=== PATIENT | female | born 1970 ===

== ENCOUNTER 2024-12-12 19:16 | Inpatient (IN) | payer OTHER, SELFPAY ==
[2024-12-12 19:43] VITALS: BP 136/91; PULSE 80; RESP 17; TEMP 36.5; O2SAT 96; BMI 30.5
[2024-12-12 20:45] LABS: MANUAL DIFF FLAG NO
[2024-12-12 20:47] LABS: Basophils Absolute Auto 0.1 X10*3/uL (0.0-0.2); Basophils Percent Auto 0.9 % (0-2); Eosinophils Absolute Auto 0.1 X10*3/uL (0.0-0.4); Hematocrit 39.7 % (37.0-47.0); Hemoglobin 13.4 g/dl (12.0-16.0); Imm Gran Abs Auto 0.01 X10*3/uL (0.00-0.03); Imm Gran Pct Auto 0.1 % (0.0-0.4); Lymphocytes Absolute Auto 3.6 X10*3/uL (1.2-4.9); Lymphocytes Percent Auto 51.7 % (20-40); Mean Corpuscular HGB Conc 33.8 g/dl (31.0-35.0); Mean Corpuscular Hemoglobin 30.5 pg (27.0-33.0); Mean Corpuscular Volume 90.2 fL (80.0-98.0); Mean Platelet Volume 9.5 fL (9.4-12.3); Monocytes Absolute Auto 0.5 X10*3/uL (0.1-1.2); Monocytes Percent Auto 7.6 % (2-11); Neutrophils Absolute Auto 2.6 x10*3/uL (2.0-8.3); Neutrophils Percent Auto 37.7 % (45-73); Platelet Count 330 X10*3/uL (160-400); Red Cell Distribution Width 12.7 % (11.0-16.0)
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
[2024-12-12 21:01] LABS: Alanine Aminotransferase 27 U/L (0-31); Albumin Level 4.4 g/dL (3.5-5.0); Alkaline Phosphatase 107 U/L (39-117); Anion Gap 12 (12-20); Aspartate Amino Transferase 21 U/L (5-31); Bilirubin Total 0.3 mg/dL (0.0-1.0); Blood Urea Nitrogen 12 mg/dL (9-16); Calcium 10.2 mg/dL (8.4-10.2); Carbon Dioxide 23 mmol/L (22-29); Chloride 113 mmol/L (96-108); Creatinine Clr Calc Pharmacy 81.5; Estimated Glomerular Filt Rate > 60; Ethanol < 10 mg/dL; Glucose Random 89 mg/dL (60-115); Sodium 144 mmol/L (135-145); Total Protein 7.2 g/dL (6.5-8.0)
--- NOTE | 2024-12-12 21:20 | ED_ITS ---
HPI - Psych General Chief Complaint: Psychiatric Symptoms Stated Complaint: SI Time Seen by Provider: 12/12/24 19:47 Source: patient and EMS Mode of arrival: EMS Limitations: no limitations History of Present Illness ED Provider: Nelida Marin NP HPI Narrative: Patient is a 54-year-old female who presents emergency department for evaluation via EMS. She came voluntarily endorsing suicidal ideations with a plan to shoot herself in her backyard. She admits that she has been having longstanding issues with depression since 2021 when her mother from [employer]. At that time she became the guardian of her younger siblings who were adopted states currently has a brother who is 14 currently home with her son and her sister who is 16 and in a local [facility] home. She follows with her therapist/psychiatrist through [facility] She admits to an inpatient admission in April 2024 for 3 weeks followed by 3 months of partial hospitalization program. At this time she does feel that she would benefit from an inpatient stay. Denies homicidal ideations. Denies recreational drug or alcohol usage. Denies auditory or visual hallucinations. Offers no physical complaints at this time Related Data Home Medications ?Medication ?Instructions ?Recorded ?Confirmed atogepant 60 mg tablet (Qulipta) 60 mg PO DAILY 12/12/24 12/12/24 bupropion HCl 150 mg tablet,12 hr 150 mg PO DAILY 12/12/24 12/12/24 sustained-release npfsizyzkk-[id number]-gzuxtanq 1 tab PO QID PRN migraine 12/12/24 12/12/24 50 mg-325 mg-40 mg tablet clonidine HCl 0.1 mg tablet 0.1 mg PO QID PRN Anxiety 12/12/24 12/12/24 hydrochlorothiazide 12.5 mg tablet 12.5 mg PO DAILY PRN Edema 12/12/24 12/12/24 sertraline 150 mg capsule 150 mg PO DAILY 12/12/24 12/12/24 topiramate 100 mg tablet 100 mg PO BEDTIME 12/12/24 12/12/24 ubrogepant 100 mg tablet (Ubrelvy) 100 mg BID PRN Migraine Headache 12/12/24 12/12/24 vitamin B complex 1 cap PO DAILY 12/12/24 12/12/24 zolpidem 10 mg tablet 10 mg PO BEDTIME 12/12/24 12/12/24 Allergies Allergy/AdvReac Type Severity Reaction Status Date / Time gabapentin Allergy Rash Verified 12/12/24 19:50 lisinopril Allergy Rash Verified 12/12/24 19:50 Penicillins Allergy Rash Verified 12/12/24 19:50 Review of Systems 2 Review of Systems: Yes all other systems are reviewed and are negative [facility] Past Medical History Attestation statement: The following information was validated with the patient. Source: old records reviewed Social History Social History Household Members: Family Household Members Other:: daughter, son, little brother, and Housing: House Do you presently have visiting nurse or other home services: No Patient Tobacco Use Status: Never used Tobacco Smoked in Last 30 Days: No e-Cigarette/Vaping Use: Never Used Patient Interested in Nicotine Replacement: No Patient Given Instructions on How to Stop Smoking: No Second Hand Smoke Exposure: No Currently Displaying Signs/Symptoms of Drug Intoxication Withdrawal: No Have you been hit, kicked, punched, or otherwise hurt by someone within the past year? If so, by whom?: No Do you feel safe in your current relationship?: Yes Is there a partner from a previous relationship who is making you feel unsafe now?: No Are you made to feel afraid or neglected: No Spiritual Healthcare Practices: none Sabianism Healthcare Practices: reading bible, is Jew Cultural Healthcare Practices: none Advance Directives: No Advance Directives Information Provided: No Do you have thoughts of harming others: None Do you have a plan to hurt others: No Plan Recently lost weight without trying: No How much weight loss: Not applicable Eating poorly because of decreased appetite: No Nutrition screen score: 0 Nutrition Risks: No Nutritional Risk Patient : No : No Poor oral hygiene: No service: No Sexual orientation: Straight/Heterosexual Physical Exam 2 Vital Signs: Vital Signs: Last Vital Signs Temp 98.1 F 12/16/24 19:58 Pulse 87 12/16/24 19:58 Resp 16 12/16/24 19:58 BP 132/94 H 12/16/24 19:58 Pulse Ox 98 12/16/24 19:58 O2 Del Method Room Air 12/16/24 19:58 BMI result Body Mass Index 30.5 Appearance: Alert.?Oriented to person, place and time. No acute distress.?Normal affect. Eyes: Pupils equal, round and reactive to light.? ENT: Pharynx normal.?? Neck: Normal inspection.? Neck supple.?? CVS: Heart sounds normal. Normal heart rate and rhythm.? Pulses normal.?? Respiratory: No respiratory distress.? Lung sounds clear to auscultation bilaterally?? Abdomen: Soft and non-tender. Normoactive bowel sounds. Skin: Skin warm and dry.? Normal skin color.? Extremities: No lower extremity edema.? Neuro: Moves all extremities spontaneously. Sensation intact bilaterally. CN II- XII intact. No focal neuro deficits. Ambulates with normal steady gait. Course Reevaluation(s) Reevaluation #1: Seen by [facility] in the community, deemed inpatient level of care Reevaluation #2: Time: 06:39 Date: 12/13/24 Provider: Jona Lucero MD Patient in physician observation for psychiatric evaluation.? patient has been in the emergency department for 11 hours. Patient presented with suicidal ideation with plan to shoot herself, she was evaluated by [facility] crisis and is on a Section 12. No acute events reported overnight. No current complaints. VS stable.? Patient is in bed search status. Will continue to monitor. Time: 13:08 Date: 12/13/24 Provider: Jona Lucero MD Physician observation ended at 13:08. Patient to be admitted as inpatient to psychiatry. Medications Administered Generic Name Dose Route Start Last Admin Trade Name Freq PRN Reason Stop Dose Admin Acetaminophen/Butalbital/Caffeine 1 tab 12/12/24 22:06 12/16/24 20:16 Butalb/Acetamin/Caff 50/325/40 Tablet PO 1 tab QID PRN Administration migraine Bupropion HCl 300 mg 12/15/24 09:00 12/16/24 08:58 Bupropion Hcl Xl 300 Mg Tab.Er.24h PO 300 mg DAILY CATHY Administration Clonidine HCl 0.1 mg 12/12/24 22:06 12/13/24 18:58 Clonidine Hcl 0.1 Mg Tablet PO 0.1 mg QID PRN Administration Anxiety Protocol Hydrochlorothiazide 12.5 mg 12/12/24 22:06 12/16/24 08:57 Hydrochlorothiazide 12.5 Mg Tablet PO 12.5 mg DAILY PRN Administration Edema Protocol Multivitamins/Vitamin C 1 tab 12/13/24 09:00 12/16/24 08:58 Multivitamin Tablet PO 1 tab DAILY CATHY Administration Olanzapine 5 mg 12/13/24 12:16 12/15/24 21:57 Olanzapine 5 Mg Tablet PO 5 mg TID PRN Administration agitation Olanzapine 5 mg 12/16/24 20:00 12/16/24 20:17 Olanzapine 5 Mg Tablet PO 5 mg DAILY@2000 CATHY Administration Sertraline HCl 150 mg 12/13/24 09:00 12/16/24 08:58 Sertraline Hcl 50 Mg Tablet PO 150 mg DAILY CATHY Administration Topiramate 100 mg 12/12/24 22:30 12/16/24 20:20 Topiramate 100 Mg Tablet PO 100 mg BEDTIME CATHY Administration Zolpidem Tartrate 5 mg 12/12/24 22:15 12/16/24 20:21 Zolpidem Tartrate 5 Mg Tablet PO 5 mg BEDTIME CATHY Administration Discontinued Medications Generic Name Dose Route Start Last Admin Trade Name Freq PRN Reason Stop Dose Admin Bupropion HCl 150 mg 12/13/24 09:00 12/14/24 08:36 Bupropion Hcl Xl 150 Mg Tab.Er.24h PO 150 mg DAILY CATHY Administration Bupropion HCl 150 mg 12/14/24 14:40 12/14/24 15:08 Bupropion Hcl Xl 150 Mg Tab.Er.24h PO 12/14/24 14:41 150 mg ONCE ONE Administration Zolpidem Tartrate 5 mg 12/12/24 22:49 12/12/24 22:58 Zolpidem Tartrate 5 Mg Tablet PO 12/12/24 22:50 5 mg ONCE ONE Administration Medical Decision Making Medical Decision Making [facility] Narrative: Patient is a 54-year-old female with past medical history of depression, migraines who presents emergency department voluntarily for suicidal ideations with a plan as per HPI. She is calm and cooperative at the time of my evaluation. She offers no physical complaints under physical examination is benign. She denies recreational drug or alcohol usage. Plan to obtain serum labs for medical clearance and will refer to care team for safe disposition planning Differential Diagnosis Differential Diagnoses: The differential diagnosis associated with the presentation includes (See narrative above and below for further detail) Admission/Observation Consideration of admission/observation: Escalation of care including admission/observation considered Patient is being observed in the Emergency Department for depression and suicidal ideation. Observation time was started at 21:00 on 12/12/2024.?The patient is currently stable and non-toxic appearing. Observation is being initiated in the Emergency Department to allow time to help differentiate if the patient's depression and suicidal ideation is due to Substance Induced Mood Disorder and Anxiety versus Major Depressive Disorder, Bipolar Cynthia, Bipolar Depression, and Schizophrenia. The patient will receive frequent psychiatric assessments from the provider as well as from nursing staff. The patient will also be monitored for the need of PRN agitation medications such as Haldol, Ativan, and Benadryl. Consult Healthcare Provider Management of the patient was discussed with: Behavioral Health Provider (CARE team) Lab Data MDM Lab Attestation statement: I reviewed the patient's lab results. CBC is without leukocytosis anemia or thrombocytopenia. No electrolyte derangement. No GEOVANI. Ethyl alcohol level not detectable. 12/12/24 20:41 12/14/24 08:26 Labs: Lab Results 12/12/24 12/13/24 12/13/24 Range/Units 20:41 06:38 06:40 WBC 7.0 (4.8-10.8) X10*3/uL RBC 4.40 (4.20-5.50) X10*6/uL Hgb 13.4 (12.0-16.0) g/dl Hct 39.7 (37.0-47.0) % MCV 90.2 (80.0-98.0) fL MCH 30.5 (27.0-33.0) pg MCHC 33.8 (31.0-35.0) g/dl RDW 12.7 (11.0-16.0) % Plt Count 330 (160-400) X10*3/uL MPV 9.5 (9.4-12.3) fL Immature Gran % (Auto) 0.1 (0.0-0.4) % Neut % (Auto) 37.7 L (45-73) % Lymph % (Auto) 51.7 H (20-40) % [place] % (Auto) 7.6 (2-11) % Eos % (Auto) 2.0 (0-4) % Baso % (Auto) 0.9 (0-2) % Lymph # (Auto) 3.6 (1.2-4.9) X10*3/uL [place] # (Auto) 0.5 (0.1-1.2) X10*3/uL Eos # (Auto) 0.1 (0.0-0.4) X10*3/uL Baso # (Auto) 0.1 (0.0-0.2) X10*3/uL Abs Immat Gran (auto) 0.01 (0.00-0.03) X10*3/uL Absolute Neuts (auto) 2.6 (2.0-8.3) x10*3/uL Absolute Nucleated RBC 0.000 (0.0-0.012) X10*3/uL Nucleated RBC % (auto) 0.0 (0.0-0.2) /100WBC Sodium 144 (135-145) mmol/L Potassium 4.0 (3.3-5.1) mmol/L Chloride 113 H (96-108) mmol/L Carbon Dioxide 23 (22-29) mmol/L Anion Gap 12 (12-20) BUN 12 (9-16) mg/dL Creatinine 0.88 (0.5-1.4) mg/dL Estim Creat Clear Calc 81.5 Estimated GFR > 60 Random Glucose 89 (60-115) mg/dL Calcium 10.2 (8.4-10.2) mg/dL Total Bilirubin 0.3 (0.0-1.0) mg/dL AST 21 (5-31) U/L ALT 27 (0-31) U/L Alkaline Phosphatase 107 (39-117) U/L Total Protein 7.2 (6.5-8.0) g/dL Albumin 4.4 (3.5-5.0) g/dL Urine Color Yellow Urine Appearance Clear Urine pH 6.0 (5.0-9.0) Ur Specific [place] 1.025 (1.005-1.025) Urine Protein Negative (Neg-Trace) mg/dL Urine Glucose (UA) Negative (Negative) mg/dL Urine Ketones Trace (Negative) mg/dL Urine Blood Negative (Negative) Urine Nitrite Negative (Negative) Ur Leukocyte Esterase Trace H (Negative) Urine RBC 0-2 (0-2) /HPF Urine WBC 0-5 (0-5) /HPF Ur Squamous Epith Cells 6-10 (0-2) /HPF Calcium Oxalate Crystal Present Urine Bacteria Trace (None Seen) Hyaline Casts 0-2 (0-2) /LPF Urine Test NEGATIVE (NEGATIVE) Urine Opiates Screen Not Detected (Not Detect) Ur Buprenorphine Scrn Not Detected (Not Detect) ng/mL Ur Oxycodone Screen Not Detected (Not Detect) ng/mL Urine Methadone Screen Not Detected (Not Detect) ng/mL Urine Fentanyl Screen Not Detected (Not Detect) Ur Barbiturates Screen POSITIVE H (Not Detect) Ur Phencyclidine Scrn Not Detected (Not Detect) Ur Amphetamines Screen Not Detected (Not Detect) U Benzodiazepines Scrn Not Detected (Not Detect) Urine Cocaine Screen Not Detected (Not Detect) U Marijuana (THC) Screen Not Detected (Not Detect) Ethyl Alcohol < 10 mg/dL Independent Historian Clinical information obtained from an independent historian. History obtained from or confirmed by: EMS Chronic Conditions Patient?s care impacted by: Other (See narrative above) Discharge Plan Discharge Clinical Impression: Depression Patient Disposition: Admitted As Inpatient Discharge Date/Time: 12/13/24 13:31
--- NOTE | 2024-12-12 22:18 | PHA.MEDREC ---
Pharmacy Consult ? Medication Reconciliation Pharmacy has completed the medication reconciliation. Med rec completed by nursing, matched claim history. Spoke to Sabrina about the fill hx for topiramate and she did confirm with patient that she has been taking it despite it not being on her home med list. Nursing added to home med list
[2024-12-12 22:47] VITALS: BP 109/67
[2024-12-12] MEDS: Topiramate 100 MG TABLET PO (22:47)
[2024-12-12] MEDS: Zolpidem Tartrate 5 MG TABLET PO ×2 (22:47→22:58)
[2024-12-12] MEDS: cloNIDine HCL 0.1 MG TABLET PO (22:47)
--- NOTE | 2024-12-13 | ECG_ITS ---
Test Reason : R/O PROLONGED QT Blood Pressure : */* mmHG Vent. Rate : 67 BPM Atrial Rate : 67 BPM P-R Int : 144 ms QRS Dur : 100 ms QT Int : 410 ms P-R-T Axes : 72 27 19 degrees QTcB Int : 433 ms Normal sinus rhythm Normal ECG No previous ECGs available Referred By: Nelida Marin Electronically Signed By: FELICITA MARIN
--- NOTE | 2024-12-13 00:33 | MHC.CARE ---
[facility] contacted the Care Team to inform staff that pt would be presenting on a section 12 from the community and was found appropriate for IPLOC. ESTELA stated that she is SI with plan to shoot self however, denied any access to firearms at this time. Pt will be arriving on a section 12. Information was passed to ED staff and pod RN. Per [facility] they will send a copy of the evaluation once completed.
[2024-12-13 06:33] VITALS: BP 135/83; PULSE 91; RESP 16; TEMP 36.8; O2SAT 99
[2024-12-13 06:48] LABS: UPreg QC Valid YES; Urine Pregnancy NEGATIVE (NEGATIVE)
[2024-12-13 06:52] LABS: Appearance Urine Clear; Color Urine Yellow; Glucose Urine UA Negative (Negative); Leukocyte Esterase Urine Trace (Negative); Nitrite Urine Negative (Negative); Specific Gravity - Urine 1.025 (1.005-1.025); UMIC TRIGGER UACC YES; Urine Blood Negative (Negative); Urine Ketones Trace mg/dL (Negative); Urine Protein Negative (Neg-Trace)
[2024-12-13 06:59] LABS: Amphetamine Screen Urine Not Detected (Not Detect); Barbiturates, Urine POSITIVE (Not Detect); Benzodiazepines Screen Urine Not Detected (Not Detect); Buprenorphine Scr Not Detected (Not Detect); Cannabinoid Screen Urine Not Detected (Not Detect); Cocaine Screen Urine Not Detected (Not Detect); Fentanyl, urine Not Detected (Not Detect); Methadone Screen, Urine Not Detected (Not Detect); Opiate Screen Urine Not Detected (Not Detect); Oxycodone Screen Urine Not Detected (Not Detect); Phencyclidine Screen Urine Not Detected (Not Detect)
[2024-12-13 07:03] LABS: Bacteria Urine Trace (None Seen); Calcium Oxalate Crystals Urine Present; Hyaline Casts Urine 0-2 /LPF (0-2); RBC Urine 0-2 /HPF (0-2); WBC Urine 0-5 /HPF (0-5)
[2024-12-13] MEDS: Sertraline HCL 50 MG TABLET 150 MG PO (09:30)
[2024-12-13] MEDS: buPROPion HCl XL 150 MG TAB.ER.24H PO (09:30)
--- NOTE | 2024-12-13 10:56 | PC.NURSE ---
Patient is a 54-year-old female who presents emergency department for evaluation via EMS. She came voluntarily endorsing suicidal ideations with a plan to shoot herself in her backyard was evaluated in the community placed on a section 12 and IPLOC recommended. She admits that she has been having longstanding issues with depression since 2021 when her mother from [facility]. Patient alert but tearful. Respirations even and non-labored. Requesting come over the counter medication and informed her to have family bring those items in. Patient is a in-patient bed search.
[2024-12-13] MEDS: Butalb/Acetamin/Caff 50/325/40 TABLET 1 TAB PO (13:00)
--- NOTE | 2024-12-13 13:08 | PC.NURSE ---
Report given to Krunal FRANKLIN on [facility]
[2024-12-13 16:18] VITALS: BP 158/84; PULSE 73; TEMP 36.4; O2SAT 100
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
[2024-12-13 18:48] VITALS: BMI 32.0
[2024-12-13 18:58] VITALS: BP 135/75
[2024-12-13] MEDS: cloNIDine HCL 0.1 MG TABLET PO (18:58)
[2024-12-13 19:48] VITALS: BP 139/84; PULSE 111; TEMP 36.5; O2SAT 96
[2024-12-13 20:00] VITALS: BP 139/84; PULSE 111; TEMP 36.5; O2SAT 96
[2024-12-13] MEDS: Zolpidem Tartrate 5 MG TABLET PO (20:30)
[2024-12-13] MEDS: Topiramate 100 MG TABLET PO (20:30)
[2024-12-13] MEDS: OLANZapine 5 MG TABLET PO (20:32)
[2024-12-14 08:00] VITALS: BP 135/81; PULSE 71; TEMP 36.6; O2SAT 100
[2024-12-14] MEDS: Sertraline HCL 50 MG TABLET 150 MG PO (08:36)
[2024-12-14] MEDS: buPROPion HCl XL 150 MG TAB.ER.24H PO ×2 (08:36→15:08)
[2024-12-14 08:57] LABS: Estimated Average Glucose 108 mg/dL; Hemoglobin A1C 134.8665 umol/L; Hemoglobin A1c % 5.4 % (<6.0); Total Hemoglobin (HGBA1C) 3769.5585 umol/L
[2024-12-14 08:58] LABS: Anion Gap 14 (12-20)
[2024-12-14 09:03] LABS: Alanine Aminotransferase 22 U/L (0-31); Albumin Level 4.2 g/dL (3.5-5.0); Aspartate Amino Transferase 21 U/L (5-31); Bilirubin Total 0.3 mg/dL (0.0-1.0); Blood Urea Nitrogen 7 mg/dL (9-16); Carbon Dioxide 22 mmol/L (22-29); Chloride 115 mmol/L (96-108); Cholesterol 217 mg/dL (<200); Creatinine Clr Calc Pharmacy 87.5; Estimated Glomerular Filt Rate > 60; Glucose Random 79 mg/dL (60-115); HDL Cholesterol 68 mg/dL (>40); LDL Cholesterol Calculated 134 mg/dL (<100); Potassium 3.8 mmol/L (3.3-5.1); Sodium 147 mmol/L (135-145); Total Protein 6.7 g/dL (6.5-8.0); Triglycerides 78 mg/dL (<150)
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
[2024-12-14 13:07] LABS: Alkaline Phosphatase 105 U/L (39-117)
[2024-12-14] MEDS: Butalb/Acetamin/Caff 50/325/40 TABLET 1 TAB PO ×2 (15:09→21:44)
[2024-12-14 19:50] VITALS: BP 143/82; PULSE 94; RESP 16; TEMP 36.4; O2SAT 100
[2024-12-14] MEDS: Topiramate 100 MG TABLET PO (21:45)
[2024-12-14] MEDS: Zolpidem Tartrate 5 MG TABLET PO (21:45)
[2024-12-14] MEDS: OLANZapine 5 MG TABLET PO (21:49)
[2024-12-15 07:00] VITALS: BMI 32.0
[2024-12-15 08:00] VITALS: BP 157/90; PULSE 98; TEMP 36.5; O2SAT 99
[2024-12-15] MEDS: buPROPion HCl XL 300 MG TAB.ER.24H PO (08:42)
[2024-12-15] MEDS: Sertraline HCL 50 MG TABLET 150 MG PO (08:42)
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
[2024-12-15] MEDS: Butalb/Acetamin/Caff 50/325/40 TABLET 1 TAB PO (10:59)
[2024-12-15] MEDS: OLANZapine 5 MG TABLET PO ×2 (15:23→21:57)
[2024-12-15 20:00] VITALS: BP 131/80; PULSE 75; RESP 16; TEMP 37; O2SAT 97
[2024-12-15] MEDS: Zolpidem Tartrate 5 MG TABLET PO (21:50)
[2024-12-15] MEDS: Topiramate 100 MG TABLET PO (21:50)
[2024-12-16 07:56] VITALS: BP 159/87; PULSE 84; RESP 18; TEMP 36.2; O2SAT 98
[2024-12-16] MEDS: hydroCHLOROthiazide 12.5 MG TABLET PO (08:57)
[2024-12-16] MEDS: Butalb/Acetamin/Caff 50/325/40 TABLET 1 TAB PO ×2 (08:57→20:16)
[2024-12-16] MEDS: buPROPion HCl XL 300 MG TAB.ER.24H PO (08:58)
[2024-12-16] MEDS: Multivitamin TABLET 1 TAB PO (08:58)
[2024-12-16] MEDS: Sertraline HCL 50 MG TABLET 150 MG PO (08:58)
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
[2024-12-16 19:58] VITALS: BP 132/94; PULSE 87; RESP 16; TEMP 36.7; O2SAT 98
[2024-12-16] MEDS: OLANZapine 5 MG TABLET PO ×2 (20:17→20:20)
[2024-12-16] MEDS: Topiramate 100 MG TABLET PO (20:20)
[2024-12-16] MEDS: Zolpidem Tartrate 5 MG TABLET PO (20:21)
[2024-12-17 08:00] VITALS: BP 145/85; PULSE 93; RESP 18; TEMP 36.6; O2SAT 97
[2024-12-17] MEDS: Sertraline HCL 50 MG TABLET 150 MG PO (09:00)
[2024-12-17] MEDS: buPROPion HCl XL 300 MG TAB.ER.24H PO (09:00)
[2024-12-17] MEDS: Butalb/Acetamin/Caff 50/325/40 TABLET 1 TAB PO ×2 (09:00→20:47)
[2024-12-17] MEDS: hydroCHLOROthiazide 12.5 MG TABLET PO (09:03)
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
[2024-12-17 14:40] VITALS: BP 159/94
[2024-12-17] MEDS: cloNIDine HCL 0.1 MG TABLET PO ×2 (14:40→20:47)
[2024-12-17 20:00] VITALS: BP 131/88; PULSE 84; TEMP 36.7; O2SAT 98
[2024-12-17 20:47] VITALS: BP 131/88
[2024-12-17] MEDS: Topiramate 100 MG TABLET PO (20:47)
[2024-12-17] MEDS: Zolpidem Tartrate 5 MG TABLET PO (20:47)
[2024-12-17] MEDS: OLANZapine 5 MG TABLET PO (20:48)
[2024-12-18 08:09] LABS: Anion Gap 14 (12-20); Blood Urea Nitrogen 7 mg/dL (9-16); Calcium 10.3 mg/dL (8.4-10.2); Carbon Dioxide 27 mmol/L (22-29); Chloride 109 mmol/L (96-108); Creatinine Clr Calc Pharmacy 90.7; Estimated Glomerular Filt Rate > 60; Glucose Random 85 mg/dL (60-115); Potassium 4.2 mmol/L (3.3-5.1); Sodium 146 mmol/L (135-145)
[2024-12-18] MEDS: hydroCHLOROthiazide 12.5 MG TABLET PO (08:22)
[2024-12-18] MEDS: Butalb/Acetamin/Caff 50/325/40 TABLET 1 TAB PO ×2 (08:22→20:22)
[2024-12-18] MEDS: Sertraline HCL 50 MG TABLET 150 MG PO (08:23)
[2024-12-18] MEDS: buPROPion HCl XL 300 MG TAB.ER.24H PO (08:23)
[2024-12-18] MEDS: OLANZapine 5 MG TABLET PO ×2 (13:00→20:21)
[2024-12-18 20:00] VITALS: BP 143/79; PULSE 71; RESP 16; TEMP 36.7; O2SAT 100
[2024-12-18 20:21] VITALS: BP 143/79
[2024-12-18] MEDS: Zolpidem Tartrate 5 MG TABLET PO (20:21)
[2024-12-18] MEDS: Topiramate 100 MG TABLET PO (20:21)
[2024-12-18] MEDS: cloNIDine HCL 0.1 MG TABLET PO (20:21)
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
[2024-12-19 08:01] VITALS: BP 128/79; PULSE 67; TEMP 36.7; O2SAT 98
[2024-12-19] MEDS: hydroCHLOROthiazide 12.5 MG TABLET PO (08:51)
[2024-12-19] MEDS: buPROPion HCl XL 300 MG TAB.ER.24H PO (08:51)
[2024-12-19] MEDS: Sertraline HCL 50 MG TABLET 150 MG PO (08:51)
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
[2024-12-19] MEDS: Butalb/Acetamin/Caff 50/325/40 TABLET 1 TAB PO (09:54)
--- NOTE | 2024-12-26 07:36 | PC.NURSE ---
Late Entry: October Aamir was administered Khvklcxqibwpw-Foxovjdnya-Uqrwynba 325-50-40, one (1) tablet at 2054December 15, 2024 for complaint of a migraine headache.
== END 2024-12-19 12:10 | disposition home or self-care (01) | DRG 751 ==
LOC: HO.ED 12-13 08:13 → HO.PM5 12-13 12:33
PROVIDERS: Psychiatry & Neurology Psychiatry; Admitting Provider Psychiatry & Neurology Psychiatry; Emergency Provider Emergency Medicine; Visit Provider Psychiatry & Neurology Psychiatry
DX: F33.9 Major depressive disorder, recurrent, unspecified (principal); R45.851 Suicidal ideations; Z79.899 Other long term (current) drug therapy
CPT/HCPCS: 36415; 80048; 80053; 80061; 80307; 81001; 81025; 83036; 85025; 93005; 99285

== ENCOUNTER → 2024-12-13 09:17 | Outpatient (BNV) | payer OTHER, SELFPAY | PROVIDERS: Admitting Provider Psychiatry & Neurology Psychiatry; Emergency Provider Emergency Medicine; Visit Provider Internal Medicine | DX: Z13.6 Encounter for screening for cardiovascular disorders (principal) | CPT/HCPCS: 93010 ==

== ENCOUNTER → 2024-12-13 12:16 | Outpatient (BNV) | payer OTHER, SELFPAY | PROVIDERS: Admitting Provider Psychiatry & Neurology Psychiatry; Emergency Provider Emergency Medicine; Visit Provider Nurse Practitioner Family | DX: F32.2 Major depressive disorder, single episode, severe without psychotic features (principal); R45.851 Suicidal ideations | CPT/HCPCS: 90792; 99231; 99232; 99238 ==

== ENCOUNTER → 2024-12-13 12:16 | Outpatient (BNV) | payer OTHER, SELFPAY | PROVIDERS: Admitting Provider Psychiatry & Neurology Psychiatry; Emergency Provider Emergency Medicine; Visit Provider Psychiatry & Neurology Psychiatry | DX: F32.2 Major depressive disorder, single episode, severe without psychotic features (principal) | CPT/HCPCS: 99231 ==